=== PATIENT | male | born 1980 | race Caucasian/White ===

== ENCOUNTER 2019-04-17 17:54 | Inpatient (IN) | payer BC, OTHER ==
[~2019-04-17] VITALS: Ht 195.6 cm; Wt 163.4 kg
[2019-04-17] MEDS ORDERED: diltiazem 5mg/ml 5ml inj. IV ONE ×2 (18:20→18:50)
[2019-04-17] MEDS ORDERED: NO HOME MEDS (18:41)
[2019-04-17 18:50] LABS: BASOPHILS # (AUTO) 0.1 X10'3 (0-0.2); BASOPHILS % (AUTO) 1.1 % (0-1); EOSINOPHILS # (AUTO) 0.2 X10'3 (0-0.9); EOSINOPHILS % (AUTO) 1.1 % (0-6); HEMATOCRIT 39.3 % (42.0-52.0); LYMPHOCYTES # (AUTO) 1.6 X10'3 (1.1-4.8); LYMPHOCYTES % (AUTO) 11.2 % (21-51); MEAN CORPUSCULAR HGB CONC 33.1 g/dL (33.0-36.5); MEAN CORPUSCULAR VOLUME 90.5 FL (78-98); MEAN PLATELET VOLUME 9.8 FL (7.4-10.4); MONOCYTES % (AUTO) 6.9 % (2-12); NEUTROPHILS # (AUTO) 11.1 X10'3 (1.8-7.7); NEUTROPHILS % (AUTO) 79.7 % (42-75); PLATELET COUNT 233 X10'3 (140-440); RED BLOOD COUNT 4.35 X10'6 (4.70-6.10); RED CELL DISTRIBUTION WIDTH 14.7 % (11.5-14.5); WHITE BLOOD COUNT 13.9 X10'3 (4.5-11.0)
[2019-04-17 19:05] LABS: ALANINE AMINOTRANSFERASE 108 U/L (12-78); ALBUMIN 3.9 G/DL (3.4-5.0); ALBUMIN/GLOBULIN RATIO 1.1 (1.1-1.5); ALKALINE PHOSPHATASE 88 IU/L (46-116); ANION GAP 10 (8-16); ASPARTATE AMINO TRANSFERASE 41 U/L (10-37); BLOOD UREA NITROGEN 19 MG/DL (7-18); CALCIUM 9.2 MG/DL (8.5-10.1); CHLORIDE 105 MMOL/L (99-107); CREATININE 1.19 MG/DL (0.60-1.10); GLUCOSE 255 MG/DL (70-104); POTASSIUM 3.5 MMOL/L (3.5-5.1); SODIUM 143 MMOL/L (135-145); TOTAL CARBON DIOXIDE 27.9 MMOL/L (24-32); TOTAL PROTEIN 7.3 G/DL (6.4-8.2); eGFR 68 ML/MIN
[2019-04-17 19:13] LABS: MAGNESIUM 1.8 MG/DL (1.5-2.4)
--- NOTE | 2019-04-17 19:23 | NUR ---
registration is with him, he is using his arms, heart rate increases in the 120s with activity.
--- NOTE | 2019-04-17 19:23 | NUR ---
Spoke to PA in regards to troponin, BNP and glucose and kidney function. Discussed pharmaceutical options.
[2019-04-17] MEDS ORDERED: aspirin 81mg tab.chew PO ONE (19:25)
[2019-04-17] MEDS ORDERED: furosemide 10 MG/1 ML 10ml inj IV ONE (19:40)
--- NOTE | 2019-04-17 20:26 | NUR ---
PT UP TO VOID
[2019-04-17] MEDS ORDERED: diltiazem-D5W 125mg/125ml 125 ML IV SCH (20:30)
[2019-04-17] MEDS ORDERED: diltiazem-NS 100mg/100ml 100 ML IV SCH (20:30)
[2019-04-17] MEDS ORDERED: amiodarone 150mg/dext, iso-os 100 ML IV ONE (20:50)
[2019-04-17] MEDS: amiodarone/D5 360MG/200ML BAG 200 ML IV SCH (21:21)
[2019-04-17] MEDS ORDERED: potassium Cl 20 mEq SR tablet PO PRN (21:50)
[2019-04-17] MEDS ORDERED: acetaminophen 325mg tablet PO PRN (21:50)
[2019-04-17] MEDS ORDERED: magnesium 2GM in 50ml NS 50 ML IV PRN (21:50)
[2019-04-17] MEDS ORDERED: magnesium Cl slow-release 64mg tablet PO PRN (21:50)
[2019-04-17] MEDS ORDERED: potassium CL 10mEq/100ml bag 100 ML IV PRN ×2 (21:50)
[2019-04-17] MEDS ORDERED: magnesium 4gm in 100ml NS 100 ML IV PRN (21:50)
[2019-04-17] MEDS ORDERED: ondansetron/PF 4mg/2ml inj IV PRN (21:50)
--- NOTE | 2019-04-17 21:52 | NUR ---
PATRICIA informed of the patients' blood pressure. Pulled up the trend review for her. She will re evaluate at a later time.
[2019-04-17] MEDS ORDERED: metoprolol tartrate 1mg/ml inj IV STA (21:57)
--- NOTE | 2019-04-17 21:58 | NUR ---
Dr. Ledezma notified of bp and order obtained.
[2019-04-17] MEDS ORDERED: nitroGLYCERIN-Tridil 50MG/D5W 250 ML IV SCH (22:00)
--- NOTE | 2019-04-17 22:11 | NUR ---
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
[2019-04-17 22:40] VITALS: BP 167/135
--- NOTE | 2019-04-17 22:47 | NUR ---
Patient in room ED 5. I have received report from MICKI Kaye and had the opportunity to ask questions and assume patient care.
[2019-04-17 23:00] VITALS: BP 211/136
[2019-04-17 23:10] VITALS: BP 152/126
--- NOTE | 2019-04-17 23:25 | NUR ---
Sent to [facility] PAGER ID: [phone] MESSAGE: room 3019M Dilan Zheng: Patient BS 253 accucheck. Not dx w/DM Parent's have DM Would you like to get A1C and order diabetic protocol? Thanks, Nicole [phone]
[2019-04-17] MEDS ORDERED: dextrose ORAL solution 15 GM/59 ML bottle PO PRN ×2 (23:30)
[2019-04-17] MEDS ORDERED: glucagon, human recombinant 1mg kit SUBCUT PRN (23:30)
[2019-04-17] MEDS ORDERED: MESSAGE TO PHARMACY PO ONE (23:30)
[2019-04-17] MEDS ORDERED: dextrose 50%-water 50ml dispensing syringe IV PRN ×2 (23:30)
--- NOTE | 2019-04-17 23:49 | NUR ---
Patient arrived on unit at approx 2300 was placed on bedside monitor, started on nitro drop per md order, amidodorone running per md order, vital sign obtained and recorded, MRSA complete, 2 RN skin check complete, DART complete. Patient vital signs are being monitored closely.
[2019-04-17 23:50] LABS: HEMOGLOBIN A1C 9.2 % (4.5-6.2)
[2019-04-18] VITALS (18 sets, daily range): BP systolic 118–230; BP diastolic 88–180
[2019-04-18] MEDS: nitroGLYCERIN-Tridil 50MG/D5W 250 ML IV SCH ×3 (02:28→04:34)
--- NOTE | 2019-04-18 02:30 | NUR ---
Called Darien to report patient HR 130's and BP 230/160 manual. Her orders were to increase the nitro drop to 10 mcg/min and to keep the amiodorone drip at its current dose of 1 mg/min
[2019-04-18] MEDS: amiodarone/D5 360MG/200ML BAG 200 ML IV SCH ×2 (03:07→10:11)
--- NOTE | 2019-04-18 03:13 | NUR ---
Sent to [facility] PAGER ID: [phone] MESSAGE: room 2017B Dilan Zheng: BP is still 210/180 manual. on 10 mcg of nitro for 44 min now. Would you like to increase? Nicole [phone]
[2019-04-18] MEDS ORDERED: cloNIDine 0.1 mg tablet PO ONE (03:20)
[2019-04-18] MEDS: insulin Lispro (HumaLOG) vial - multi-dose SQ SCH ×5 (03:25→21:02)
--- NOTE | 2019-04-18 04:21 | NUR ---
SENT TO [facility] ROOM 2017B Norm Kong: Manual BP 206 systolic Please advise Thanks, Nicole [phone] (135 character message out of a maximum of 240)
--- NOTE | 2019-04-18 06:15 | NUR ---
Problems reprioritized. Patient report given, questions answered & plan of care reviewed with Ingrid RN, MICKI Villalpando.
[2019-04-18 06:47] LABS: BASOPHILS # (AUTO) 0.1 X10'3 (0-0.2); BASOPHILS % (AUTO) 0.9 % (0-1); EOSINOPHILS # (AUTO) 0.1 X10'3 (0-0.9); EOSINOPHILS % (AUTO) 1.2 % (0-6); HEMATOCRIT 34.7 % (42.0-52.0); HEMOGLOBIN 11.8 g/dl (14.0-17.9); LYMPHOCYTES # (AUTO) 1.6 X10'3 (1.1-4.8); LYMPHOCYTES % (AUTO) 13.3 % (21-51); MEAN CORPUSCULAR HEMOGLOBIN 30.2 PG (27.0-31.0); MEAN CORPUSCULAR VOLUME 88.8 FL (78-98); MEAN PLATELET VOLUME 9.6 FL (7.4-10.4); MONOCYTES % (AUTO) 7.9 % (2-12); NEUTROPHILS # (AUTO) 9.5 X10'3 (1.8-7.7); NEUTROPHILS % (AUTO) 76.7 % (42-75); PLATELET COUNT 228 X10'3 (140-440); RED CELL DISTRIBUTION WIDTH 14.8 % (11.5-14.5); WHITE BLOOD COUNT 12.4 X10'3 (4.5-11.0)
[2019-04-18 06:55] LABS: ALANINE AMINOTRANSFERASE 87 U/L (12-78); ALBUMIN 3.5 G/DL (3.4-5.0); ALBUMIN/GLOBULIN RATIO 1.2 (1.1-1.5); ALKALINE PHOSPHATASE 73 IU/L (46-116); ANION GAP 8 (8-16); ASPARTATE AMINO TRANSFERASE 24 U/L (10-37); BILIRUBIN,TOTAL 0.7 MG/DL (0.1-1.0); BLOOD UREA NITROGEN 18 MG/DL (7-18); BUN/CREATININE RATIO 15.8 (5.4-32.0); CALCIUM 8.3 MG/DL (8.5-10.1); CHLORIDE 104 MMOL/L (99-107); CREATININE 1.14 MG/DL (0.60-1.10); GLUCOSE 269 MG/DL (70-104); POTASSIUM 3.4 MMOL/L (3.5-5.1); SODIUM 141 MMOL/L (135-145); TOTAL CARBON DIOXIDE 29.3 MMOL/L (24-32); TOTAL PROTEIN 6.4 G/DL (6.4-8.2); eGFR 72 ML/MIN
[2019-04-18 07:02] LABS: BILIRUBIN,DIRECT 0.2 MG/DL (0-0.3); MAGNESIUM 1.9 MG/DL (1.5-2.4)
--- NOTE | 2019-04-18 07:26 | NUR ---
Patient in room [place] [address]. I have received report from and had the opportunity to ask questions and assume patient care. Addendum: 04/18/19 at 0726 by Irasema Ontiveros RN Patient in room [place] [address]. I have received report from MICKI Rivera and had the opportunity to ask questions and assume patient care.
--- NOTE | 2019-04-18 07:26 | NUR ---
Kandice Lemus PAGER ID: [phone] MESSAGE: Sumit - Norm Kong: BANG: Pt trop level is 0.18
[2019-04-18] MEDS: heparin, porcine 5000 units/ml vial SQ SCH ×2 (07:45→19:15)
[2019-04-18] MEDS: furosemide 40mg/4ml inj IV SCH ×2 (07:45→19:16)
[2019-04-18] MEDS: K and/or MAG REPLACEMENT MC SCH ×2 (07:46→19:35)
[2019-04-18] MEDS: carVEDilol 3.125mg tablet PO SCH ×2 (07:46→21:02)
[2019-04-18] MEDS: potassium Cl 20 mEq SR tablet PO PRN ×3 (07:46→19:19)
--- NOTE | 2019-04-18 07:51 | NUR ---
Paged Stella regarding pt high BP PAGER ID: [phone] MESSAGE: [id number]- Norm Kong: BANG pts BP 160/120, currently on nitro gtt @ 20mcg/min and amio @33mL/hr. Irasema [phone]
[2019-04-18] MEDS ORDERED: FLU VACC QS2019-20 36MOS UP/PF 60 MCG/0.5 ML SYRINGE IMVAC ONE (10:00)
--- NOTE | 2019-04-18 11:05 | NUR ---
Paged Cristina PAGER ID: [phone] MESSAGE: [id number] - Iveth Peters: BANG - Manual BP was 190/75, HR 72. In no distress at this time. Kindly advise. - Irasema [phone]
[2019-04-18] MEDS ORDERED: diltiazem 5mg/ml 5ml inj. IV ONE (14:05)
[2019-04-18] MEDS ORDERED: diltiazem-NS 100mg/100ml 125 ML IV SCH (14:05)
--- NOTE | 2019-04-18 14:16 | NUR ---
Initial: Pt admit with CP and probable CHF. Patient's current A1c is 9.2 however no documented hx of DM. Pt seen at bedside reports no knowledge of having DM. RD paged MD regarding patient needing DM dx prior to RD providing education. Pt on a CHO controlled diet with no documentation of PO intake however pt reports eating almost all of breakfast this morning. Pt denies any food allergies however requests not to receive coffee, d/w dietary. Pt denies difficulty chewing/swallowing or constipation/diarrhea. [facility] 04/17. Will continue to follow. Recommendations: 1) Continue CHO controlled diet 2) DM education prior to discharge once pt given DM dx 3) Bowel care PRN 4) Wt per rx Addendum: 04/18/19 at [address] Amended: Links added.
--- NOTE | 2019-04-18 14:18 | NUR ---
Paged PICC nurse Rm [phone] Dilan. Pt needs PIV for cardiac gtt, could you please come place one. Pt is hard stick.
[2019-04-18] MEDS: diltiazem-NS 100mg/100ml 100 ML IV SCH (16:05)
--- NOTE | 2019-04-18 17:57 | NUR ---
[place] documentation: I have reviewed and agree with interventions, assessments performed and documented by Irasema SWEET. [place] Medication Administration: For this medication-pass time frame, medication were reviewed, dispensed, administered and documented per hospital policy by Irasema SWEET.
--- NOTE | 2019-04-18 18:08 | NUR ---
Problems reprioritized. Patient report given, questions answered & plan of care reviewed with Nila Farrell.
--- NOTE | 2019-04-18 18:14 | NUR ---
Patient in room PCU 3017. I have received report from MICKI Quintero and MICIK Villalpando and had the opportunity to ask questions and assume patient care. Patient sitting up at bedside for report. On room air, 20 mcg/kg/min Nitroglycerin and 5 mcgs/kg/min Diltiazem infusing per provider order. Stable at this time. Will continue to monitor closely.
[2019-04-18 19:46] LABS: URINE AMPHETAMINE SCREEN NEGATIVE (Neg); URINE BARBITUATE SCREEN NEGATIVE (Neg); URINE BENZODIAZEPINES SCREEN NEGATIVE (Neg); URINE CANNABINOID SCREEN NEGATIVE (Neg); URINE COCAINE SCREEN NEGATIVE (Neg); URINE METHADONE SCREEN NEGATIVE (Neg); URINE OPIATE SCREEN NEGATIVE (Neg); URINE PHENCYCLIDINE SCREEN NEGATIVE (Neg)
[2019-04-18] MEDS: insulin glargine (Lantus) pen - multi-dose SQ SCH (21:00)
[2019-04-18] MEDS: lisinopril 20mg tablet PO SCH (21:03)
[2019-04-19] VITALS (12 sets, daily range): BP systolic 120–169; BP diastolic 88–132
[2019-04-19 05:20] LABS: BASOPHILS # (AUTO) 0.1 X10'3 (0-0.2); BASOPHILS % (AUTO) 0.6 % (0-1); EOSINOPHILS # (AUTO) 0.2 X10'3 (0-0.9); EOSINOPHILS % (AUTO) 1.6 % (0-6); HEMATOCRIT 35.7 % (42.0-52.0); HEMOGLOBIN 12.3 g/dl (14.0-17.9); LYMPHOCYTES # (AUTO) 2.2 X10'3 (1.1-4.8); LYMPHOCYTES % (AUTO) 16.5 % (21-51); MEAN CORPUSCULAR HEMOGLOBIN 30.2 PG (27.0-31.0); MEAN CORPUSCULAR HGB CONC 34.3 g/dL (33.0-36.5); MEAN CORPUSCULAR VOLUME 88.2 FL (78-98); MEAN PLATELET VOLUME 9.6 FL (7.4-10.4); MONOCYTES % (AUTO) 7.9 % (2-12); NEUTROPHILS # (AUTO) 9.6 X10'3 (1.8-7.7); NEUTROPHILS % (AUTO) 73.4 % (42-75); PLATELET COUNT 236 X10'3 (140-440); RED BLOOD COUNT 4.06 X10'6 (4.70-6.10); RED CELL DISTRIBUTION WIDTH 14.3 % (11.5-14.5); WHITE BLOOD COUNT 13.1 X10'3 (4.5-11.0)
[2019-04-19 05:24] LABS: ALBUMIN 3.6 G/DL (3.4-5.0); ANION GAP 9 (8-16); BLOOD UREA NITROGEN 21 MG/DL (7-18); BUN/CREATININE RATIO 18.4 (5.4-32.0); CALCIUM 8.5 MG/DL (8.5-10.1); CHLORIDE 103 MMOL/L (99-107); CREATININE 1.14 MG/DL (0.60-1.10); GLUCOSE 179 MG/DL (70-104); MAGNESIUM 1.9 MG/DL (1.5-2.4); POTASSIUM 3.3 MMOL/L (3.5-5.1); SODIUM 140 MMOL/L (135-145); TOTAL CARBON DIOXIDE 28.1 MMOL/L (24-32); eGFR 72 ML/MIN
--- NOTE | 2019-04-19 05:38 | NUR ---
Per claudia Castro DC gtt.
[2019-04-19] MEDS: potassium Cl 20 mEq SR tablet PO PRN ×3 (05:54→19:42)
[2019-04-19] MEDS: diltiazem-NS 100mg/100ml 100 ML IV SCH ×2 (05:55→18:06)
--- NOTE | 2019-04-19 06:13 | NUR ---
Problems reprioritized. Patient report given, questions answered & plan of care reviewed with MICKI MENESES.
--- NOTE | 2019-04-19 06:45 | NUR ---
Patient in room PCU 3017. I have received report from Jami SWEET and had the opportunity to ask questions and assume patient care.
[2019-04-19] MEDS: lisinopril 20mg tablet PO SCH (07:18)
[2019-04-19] MEDS: carVEDilol 3.125mg tablet PO SCH (07:19)
[2019-04-19] MEDS: heparin, porcine 5000 units/ml vial SQ SCH (07:19)
[2019-04-19] MEDS: furosemide 40mg/4ml inj IV SCH ×4 (07:19→19:43)
[2019-04-19] MEDS: K and/or MAG REPLACEMENT MC SCH ×2 (07:24→19:44)
[2019-04-19] MEDS: insulin Lispro (HumaLOG) vial - multi-dose SQ SCH ×3 (08:14→19:53)
[2019-04-19] MEDS ORDERED: FLU VACC QS2019-20 36MOS UP/PF 60 MCG/0.5 ML SYRINGE IMVAC ONE (10:00)
[2019-04-19 12:33] LABS: CHOL/HDL RATIO 3.8 (0.00-4.99); CHOLESTEROL 134 MG/DL (0-200); HDL CHOLESTEROL 35 MG/DL (35-60); LDL CHOLESTEROL 87 MG/DL (50-100); TRIGLYCERIDES 139 MG/DL (20-135)
--- NOTE | 2019-04-19 16:42 | NUR ---
Problems reprioritized. Patient report given, questions answered & plan of care reviewed with Martina SWEET.
--- NOTE | 2019-04-19 17:35 | NUR ---
Patient in room MED 309. I have received report from Martina SWEET and had the opportunity to ask questions and assume patient care. bedside report completed.
--- NOTE | 2019-04-19 17:51 | NUR ---
Dr Lashae mcarthur to clarify order. paged. [phone] MESSAGE: 309--sandy can, Norm. admit for A- fib RVR. Jf solano ordered for 10 ml/hr. He arrived to ACCE on 5ml/hr HR 110-120, currently a-fib. BP 128/96. ext [phone], giles. what order would you like the Cardizem to be. 5ml/hr or 10ml/hr?
--- NOTE | 2019-04-19 18:01 | NUR ---
Dr. Gonzales at bedside Diltizem drip decreased to 5ml/hr. orders changed and noted.
[2019-04-19] MEDS: apixaban 5mg tablet PO SCH (19:43)
[2019-04-19] MEDS ORDERED: carVEDilol 3.125mg tablet PO SCH (20:00)
[2019-04-19] MEDS: insulin glargine (Lantus) pen - multi-dose SQ SCH (22:34)
[2019-04-20] VITALS (13 sets, daily range): BP systolic 101–147; BP diastolic 64–112
[2019-04-20 02:22] LABS: BASOPHILS # (AUTO) 0.1 X10'3 (0-0.2); BASOPHILS % (AUTO) 0.5 % (0-1); EOSINOPHILS # (AUTO) 0.2 X10'3 (0-0.9); EOSINOPHILS % (AUTO) 1.3 % (0-6); HEMATOCRIT 38.9 % (42.0-52.0); LYMPHOCYTES # (AUTO) 2.1 X10'3 (1.1-4.8); LYMPHOCYTES % (AUTO) 13.5 % (21-51); MEAN CORPUSCULAR HEMOGLOBIN 29.8 PG (27.0-31.0); MEAN CORPUSCULAR HGB CONC 33.4 g/dL (33.0-36.5); MEAN CORPUSCULAR VOLUME 89.1 FL (78-98); MEAN PLATELET VOLUME 9.4 FL (7.4-10.4); MONOCYTES # (AUTO) 1.4 X10'3 (0-0.9); MONOCYTES % (AUTO) 8.7 % (2-12); PLATELET COUNT 270 X10'3 (140-440); RED BLOOD COUNT 4.36 X10'6 (4.70-6.10); RED CELL DISTRIBUTION WIDTH 14.6 % (11.5-14.5); WHITE BLOOD COUNT 15.8 X10'3 (4.5-11.0)
[2019-04-20 02:33] LABS: ALBUMIN 3.6 G/DL (3.4-5.0); ANION GAP 7 (8-16); BLOOD UREA NITROGEN 21 MG/DL (7-18); BUN/CREATININE RATIO 16.8 (5.4-32.0); CALCIUM 8.7 MG/DL (8.5-10.1); CHLORIDE 103 MMOL/L (99-107); CREATININE 1.25 MG/DL (0.60-1.10); GLUCOSE 147 MG/DL (70-104); MAGNESIUM 1.9 MG/DL (1.5-2.4); POTASSIUM 3.6 MMOL/L (3.5-5.1); SODIUM 139 MMOL/L (135-145); eGFR 64 ML/MIN
[2019-04-20 02:36] LABS: PARTIAL THROMBOPLASTIN TIME 25 SECONDS (22-32)
[2019-04-20] MEDS: diltiazem-NS 100mg/100ml 100 ML IV SCH (04:09)
--- NOTE | 2019-04-20 06:18 | NUR ---
Problems reprioritized. Patient report given, questions answered & plan of care reviewed with Darlyn SWEET. bedside report completed. no distress noted.
--- NOTE | 2019-04-20 06:26 | NUR ---
Patient in room MED 309. I have received report from MICKI Ball and had the opportunity to ask questions and assume patient care.
[2019-04-20] MEDS: K and/or MAG REPLACEMENT MC SCH ×2 (08:00→20:00)
[2019-04-20] MEDS: apixaban 5mg tablet PO SCH ×2 (09:03→20:52)
[2019-04-20] MEDS: carVEDilol 12.5mg tablet PO SCH ×2 (09:06→20:52)
[2019-04-20] MEDS: CefTRIAXone/D5W-Rocephin 1gm 50 ML IV SCH (09:06)
[2019-04-20] MEDS: lisinopril 20mg tablet PO SCH (09:07)
[2019-04-20] MEDS: furosemide 40mg/4ml inj IV SCH ×3 (09:07→20:52)
[2019-04-20] MEDS: insulin Lispro (HumaLOG) vial - multi-dose SQ SCH ×2 (09:25→18:57)
[2019-04-20] MEDS ORDERED: FLU VACC QS2019-20 36MOS UP/PF 60 MCG/0.5 ML SYRINGE IMVAC ONE (10:00)
--- NOTE | 2019-04-20 10:06 | NUR ---
PICC NURSE PAGED: 309: sandy - difficult lab draws, can you place extended? ty
--- NOTE | 2019-04-20 11:00 | NUR ---
Extended PIV placed in Left Basilic Vein with Arrow Extended Catheter Lot#[id number] Exp 08/29/2020 Addendum: 04/20/19 at 1103 by Marquita Poole RN Amended: Links added.
--- NOTE | 2019-04-20 12:00 | NUR ---
pt. blood glucose is 148. pt. is NPO until ultrasound this afternoon. will not cover with insulin at this time. will check blood glucose before dinner and begin coverage again at that time.
[2019-04-20 12:43] LABS: CLARITY,URINE CLEAR (Clear); COLOR,URINE YELLOW (Yellow); GLUCOSE, URINE NEGATIVE (Neg); KETONES,URINE NEGATIVE (Neg); LEUKOCYTE ESTERASE ,URINE NEGATIVE (Neg); NITRITES, URINE NEGATIVE (Neg); OCCULT BLOOD,URINE NEGATIVE (Neg); PROTEIN,URINE NEGATIVE (Neg); UROBILINOGEN,URINE 0.2 E.U/dL (0.2-1.0)
[2019-04-20 12:45] LABS: UA COLLECTION TYPE NON-SPECIFIED
--- NOTE | 2019-04-20 18:26 | NUR ---
Patient in room MED 309. I have received report from PATRICK SWEET and had the opportunity to ask questions and assume patient care.
--- NOTE | 2019-04-20 18:47 | NUR ---
Problems reprioritized. Patient report given, questions answered & plan of care reviewed with MICKI Bruce.
[2019-04-20] MEDS: insulin glargine (Lantus) pen - multi-dose SQ SCH (22:01)
[2019-04-21] VITALS (14 sets, daily range): BP systolic 101–147; BP diastolic 54–104
--- NOTE | 2019-04-21 02:30 | NUR ---
CONDOM CATH USED FOR INCONTINENCE
--- NOTE | 2019-04-21 06:00 | NUR ---
Problems reprioritized. Patient report given, questions answered & plan of care reviewed with CASANDRA SWEET.
[2019-04-21 07:07] LABS: BASOPHILS # (AUTO) 0.1 X10'3 (0-0.2); BASOPHILS % (AUTO) 0.9 % (0-1); EOSINOPHILS # (AUTO) 0.2 X10'3 (0-0.9); EOSINOPHILS % (AUTO) 1.2 % (0-6); HEMATOCRIT 37.3 % (42.0-52.0); HEMOGLOBIN 12.5 g/dl (14.0-17.9); LYMPHOCYTES # (AUTO) 1.9 X10'3 (1.1-4.8); LYMPHOCYTES % (AUTO) 12.5 % (21-51); MEAN CORPUSCULAR HEMOGLOBIN 30.1 PG (27.0-31.0); MEAN CORPUSCULAR HGB CONC 33.5 g/dL (33.0-36.5); MEAN CORPUSCULAR VOLUME 89.8 FL (78-98); MEAN PLATELET VOLUME 9.5 FL (7.4-10.4); MONOCYTES # (AUTO) 1.6 X10'3 (0-0.9); MONOCYTES % (AUTO) 10.5 % (2-12); NEUTROPHILS # (AUTO) 11.5 X10'3 (1.8-7.7); NEUTROPHILS % (AUTO) 74.9 % (42-75); PLATELET COUNT 229 X10'3 (140-440); RED BLOOD COUNT 4.16 X10'6 (4.70-6.10); RED CELL DISTRIBUTION WIDTH 14.5 % (11.5-14.5); WHITE BLOOD COUNT 15.4 X10'3 (4.5-11.0)
[2019-04-21 07:19] LABS: ALBUMIN 3.5 G/DL (3.4-5.0); ANION GAP 6 (8-16); BLOOD UREA NITROGEN 17 MG/DL (7-18); BUN/CREATININE RATIO 14.4 (5.4-32.0); CALCIUM 8.6 MG/DL (8.5-10.1); CHLORIDE 102 MMOL/L (99-107); CREATININE 1.18 MG/DL (0.60-1.10); GLUCOSE 122 MG/DL (70-104); MAGNESIUM 2.1 MG/DL (1.5-2.4); POTASSIUM 3.5 MMOL/L (3.5-5.1); SODIUM 140 MMOL/L (135-145); TOTAL CARBON DIOXIDE 31.8 MMOL/L (24-32); eGFR 69 ML/MIN
[2019-04-21 07:22] LABS: PARTIAL THROMBOPLASTIN TIME 26 SECONDS (22-32)
[2019-04-21] MEDS ORDERED: potassium CL 10mEq/100ml bag 100 ML IV PRN (07:30)
[2019-04-21] MEDS ORDERED: magnesium Cl slow-release 64mg tablet PO PRN (07:30)
[2019-04-21] MEDS ORDERED: magnesium 2GM in 50ml NS 50 ML IV PRN (07:30)
[2019-04-21] MEDS ORDERED: magnesium 4gm in 100ml NS 100 ML IV PRN (07:30)
[2019-04-21] MEDS ORDERED: K and/or MAG REPLACEMENT MC SCH (07:30)
--- NOTE | 2019-04-21 07:33 | NUR ---
Patient in room MED 309. I have received report from MICKI Bruce and had the opportunity to ask questions and assume patient care.
[2019-04-21] MEDS: K and/or MAG REPLACEMENT MC SCH ×2 (08:00→20:00)
[2019-04-21] MEDS: apixaban 5mg tablet PO SCH ×2 (08:31→20:33)
[2019-04-21] MEDS: carVEDilol 12.5mg tablet PO SCH ×2 (08:31→20:39)
[2019-04-21] MEDS: furosemide 40mg/4ml inj IV SCH ×2 (08:31→13:42)
[2019-04-21] MEDS: lisinopril 20mg tablet PO SCH (08:32)
[2019-04-21] MEDS: CefTRIAXone/D5W-Rocephin 1gm 50 ML IV SCH (08:33)
[2019-04-21] MEDS: insulin Lispro (HumaLOG) vial - multi-dose SQ SCH ×3 (08:44→18:50)
[2019-04-21] MEDS ORDERED: carVEDilol 12.5mg tablet PO ONE (08:55)
[2019-04-21] MEDS: diltiazem-NS 100mg/100ml 100 ML IV SCH (12:41)
--- NOTE | 2019-04-21 12:54 | NUR ---
PAGER ID: [phone] MESSAGE: rm 309. pt. Norm Kong. pt. keeps flipping in and out of AFIB. Cardizem drip was dropped to 2.5 yesterday and pt. heart rate is still in 90-120s. please advise. MICKI Santizo [phone]
--- NOTE | 2019-04-21 15:34 | NUR ---
ryan paged: PAGER ID: [phone] MESSAGE: 309: MARIAM - still afib, hr 100-120s, Cardizem gtt @ 2.5. ?new orders ?cardiovert ty nurse Marlena [phone]
[2019-04-21] MEDS: furosemide inj 100 ML IV SCH (16:54)
--- NOTE | 2019-04-21 18:34 | NUR ---
Problems reprioritized. Patient report given, questions answered & plan of care reviewed with MICKI Bruce.
--- NOTE | 2019-04-21 18:41 | NUR ---
Patient in room MED 309. I have received report from bi SWEET and had the opportunity to ask questions and assume patient care.
[2019-04-21] MEDS: insulin glargine (Lantus) pen - multi-dose SQ SCH (22:00)
[2019-04-21 23:52] LABS: ALBUMIN 3.2 G/DL (3.4-5.0); ANION GAP 7 (8-16); BLOOD UREA NITROGEN 19 MG/DL (7-18); BUN/CREATININE RATIO 15.1 (5.4-32.0); CALCIUM 7.7 MG/DL (8.5-10.1); CHLORIDE 105 MMOL/L (99-107); CREATININE 1.26 MG/DL (0.60-1.10); GLUCOSE 95 MG/DL (70-104); PHOSPHORUS 4.2 MG/DL (2.3-4.5); SODIUM 142 MMOL/L (135-145); TOTAL CARBON DIOXIDE 30.2 MMOL/L (24-32); eGFR 64 ML/MIN
[2019-04-21 23:55] LABS: POTASSIUM 2.9 MMOL/L (3.5-5.1)
[2019-04-22] VITALS (12 sets, daily range): BP systolic 83–133; BP diastolic 56–80
--- NOTE | 2019-04-22 00:03 | NUR ---
CRITICAL POTASSIUM 2.9, NOTIFIED, YI START REPLACEMENT PROTOCOL
[2019-04-22] MEDS: K and/or MAG REPLACEMENT MC SCH ×2 (00:04→20:00)
[2019-04-22] MEDS: potassium Cl 20 mEq SR tablet PO PRN ×3 (00:20→11:06)
[2019-04-22] MEDS: furosemide inj 100 ML IV SCH (00:21)
--- NOTE | 2019-04-22 01:00 | NUR ---
INFUSION RATE CHANGED ON PUMP, MD GOMEZ NOTIFIED FOR CORRECTIVE INFUSION RATE OF LASIX. PATIENT STARTED ON REPLACENT PROTOCOL FOR POTASSIUM, POTASSIUM AT 2.9 ORAL POTASSIUM GIVEN TO PATIENT.
--- NOTE | 2019-04-22 06:00 | NUR ---
Problems reprioritized. Patient report given, questions answered & plan of care reviewed with BRENDA SWEET.
[2019-04-22 06:23] LABS: ALBUMIN 3.7 G/DL (3.4-5.0); ANION GAP 9 (8-16); BLOOD UREA NITROGEN 18 MG/DL (7-18); BUN/CREATININE RATIO 14.5 (5.4-32.0); CALCIUM 8.5 MG/DL (8.5-10.1); CHLORIDE 101 MMOL/L (99-107); CREATININE 1.24 MG/DL (0.60-1.10); GLUCOSE 110 MG/DL (70-104); MAGNESIUM 2.3 MG/DL (1.5-2.4); PHOSPHORUS 4.5 MG/DL (2.3-4.5); SODIUM 140 MMOL/L (135-145); TOTAL CARBON DIOXIDE 30.4 MMOL/L (24-32); eGFR 65 ML/MIN
[2019-04-22 06:24] LABS: BASOPHILS # (AUTO) 0.1 X10'3 (0-0.2); BASOPHILS % (AUTO) 0.5 % (0-1); EOSINOPHILS # (AUTO) 0.1 X10'3 (0-0.9); HEMATOCRIT 37.9 % (42.0-52.0); HEMOGLOBIN 12.9 g/dl (14.0-17.9); LYMPHOCYTES # (AUTO) 1.8 X10'3 (1.1-4.8); LYMPHOCYTES % (AUTO) 13.2 % (21-51); MEAN CORPUSCULAR HGB CONC 34.1 g/dL (33.0-36.5); MEAN PLATELET VOLUME 10.2 FL (7.4-10.4); MONOCYTES # (AUTO) 1.2 X10'3 (0-0.9); MONOCYTES % (AUTO) 8.9 % (2-12); NEUTROPHILS # (AUTO) 10.6 X10'3 (1.8-7.7); NEUTROPHILS % (AUTO) 76.4 % (42-75); PLATELET COUNT 231 X10'3 (140-440); POTASSIUM 2.9 MMOL/L (3.5-5.1); RED BLOOD COUNT 4.31 X10'6 (4.70-6.10); RED CELL DISTRIBUTION WIDTH 14.4 % (11.5-14.5); WHITE BLOOD COUNT 13.9 X10'3 (4.5-11.0)
[2019-04-22] MEDS: apixaban 5mg tablet PO SCH ×2 (07:35→20:44)
[2019-04-22] MEDS: carVEDilol 12.5mg tablet PO SCH ×2 (07:36→16:02)
[2019-04-22] MEDS: CefTRIAXone/D5W-Rocephin 1gm 50 ML IV SCH (07:36)
[2019-04-22] MEDS: lisinopril 20mg tablet PO SCH (07:36)
[2019-04-22] MEDS: insulin Lispro (HumaLOG) vial - multi-dose SQ SCH ×3 (08:39→18:21)
--- NOTE | 2019-04-22 09:00 | NUR ---
IV LEFT FOREARM REDDENED DISCONTINUED, IV MEDS SWITCHED TO SHARON EXTENDED AND RIGHT FOREARM PIV- IV LASIX AND CARDIZEM ARE NOT COMPATIBLE
[2019-04-22 09:34] LABS: PARTIAL THROMBOPLASTIN TIME 30 SECONDS (22-32)
[2019-04-22 11:49] LABS: ALBUMIN 3.4 G/DL (3.4-5.0); ANION GAP 6 (8-16); BLOOD UREA NITROGEN 21 MG/DL (7-18); BUN/CREATININE RATIO 16.5 (5.4-32.0); CALCIUM 8.1 MG/DL (8.5-10.1); CHLORIDE 103 MMOL/L (99-107); CREATININE 1.27 MG/DL (0.60-1.10); GLUCOSE 150 MG/DL (70-104); MAGNESIUM 2.3 MG/DL (1.5-2.4); PHOSPHORUS 3.7 MG/DL (2.3-4.5); SODIUM 140 MMOL/L (135-145); TOTAL CARBON DIOXIDE 30.6 MMOL/L (24-32); eGFR 63 ML/MIN
--- NOTE | 2019-04-22 12:22 | NUR ---
Reassessment: Pt PO 75-100% avg carb controlled/2L fluid restricted meals meeting needs. Per RN; pt still not d/w MD regarding new DM DX. NIKKO d/w RN regarding MD notification for pt since unable to provide education until official DM DX. Pt only knows parents have DM currently. No DM survival skills have been provided or mention on DM in MD notes. Per CM note; pt is establishing a PCP at [place] [facility]. K 3.0 on lasix receiving routine PO K replacement. LBM 04/21. Will continue to monitor. Recommendations: 1) Continue CHO controlled/2L fluid restricted diet per MD 2) DM education prior to discharge once pt given DM dx 3) Bowel care PRN 4) Wt per rx Addendum: 04/22/19 at [address] Amended: Links added.
--- NOTE | 2019-04-22 12:25 | NUR ---
paged about K of 3.[address] Gomes- "Re: Norm Kong in 309, FYI patient most recent K is 3.0. so far I've given him 40meq of KDUR. would you like an additional 40meq? thanks, Martina TIRADO [phone]"
--- NOTE | 2019-04-22 14:58 | NUR ---
paged to ask about Cardikomal Drip Paged Dr. Gomes- "Re: Dilan in 309, do you want to continue the Cardizem drip? he is also on a Lasix drip. thank you, CANDIDA Mack [phone]"
--- NOTE | 2019-04-22 15:35 | NUR ---
DR. RAHMAN PRESENT AT BEDSIDE-ORDERS RN RECEIVED ORDERS TO DC CARDIZEM DRIP (DONE AT THIS TIME) REDUCE LASIX DRIP TO 5MG/HOUR (DONE AT THIS TIME) 40MEQ KDUR ONCE NOW ADMIN ONE TIME DOSE OF MISSED CARVEDILOL (25MG) ONCE NOW. Addendum: 04/22/19 at 1603 by Martina Castaneda RN IN ADDITION- ORDER TO DC LISINOPRIL
[2019-04-22] MEDS ORDERED: potassium Cl 20 mEq SR tablet PO STA (15:38)
[2019-04-22] MEDS ORDERED: carVEDilol 12.5mg tablet PO ONE (15:40)
[2019-04-22] MEDS ORDERED: furosemide inj 100 ML IV SCH (16:10)
--- NOTE | 2019-04-22 18:00 | NUR ---
Patient in room MED 309. I have received report from Martina SWEET and had the opportunity to ask questions and assume patient care.
[2019-04-22 21:23] LABS: ALBUMIN 3.6 G/DL (3.4-5.0); ANION GAP 4 (8-16); BLOOD UREA NITROGEN 25 MG/DL (7-18); BUN/CREATININE RATIO 15.3 (5.4-32.0); CALCIUM 8.6 MG/DL (8.5-10.1); CHLORIDE 102 MMOL/L (99-107); CREATININE 1.63 MG/DL (0.60-1.10); GLUCOSE 133 MG/DL (70-104); MAGNESIUM 2.5 MG/DL (1.5-2.4); PHOSPHORUS 3.8 MG/DL (2.3-4.5); POTASSIUM 3.6 MMOL/L (3.5-5.1); SODIUM 139 MMOL/L (135-145); TOTAL CARBON DIOXIDE 32.8 MMOL/L (24-32); eGFR 47 ML/MIN
[2019-04-22] MEDS: insulin glargine (Lantus) pen - multi-dose SQ SCH (21:56)
[2019-04-23] VITALS: BP 115/78
[2019-04-23 04:22] LABS: PARTIAL THROMBOPLASTIN TIME 27 SECONDS (22-32)
[2019-04-23 04:24] LABS: ALANINE AMINOTRANSFERASE 50 U/L (12-78); ALBUMIN 3.4 G/DL (3.4-5.0); ALBUMIN/GLOBULIN RATIO 0.9 (1.1-1.5); ALKALINE PHOSPHATASE 77 IU/L (46-116); ANION GAP 7 (8-16); ASPARTATE AMINO TRANSFERASE 22 U/L (10-37); BILIRUBIN,TOTAL 1.2 MG/DL (0.1-1.0); BLOOD UREA NITROGEN 23 MG/DL (7-18); BUN/CREATININE RATIO 18.1 (5.4-32.0); CALCIUM 8.2 MG/DL (8.5-10.1); CHLORIDE 103 MMOL/L (99-107); CREATININE 1.27 MG/DL (0.60-1.10); GLUCOSE 111 MG/DL (70-104); MAGNESIUM 2.2 MG/DL (1.5-2.4); POTASSIUM 3.3 MMOL/L (3.5-5.1); SODIUM 140 MMOL/L (135-145); TOTAL PROTEIN 7.1 G/DL (6.4-8.2); eGFR 63 ML/MIN
[2019-04-23 05:13] LABS: BASOPHILS # (AUTO) 0.1 X10'3 (0-0.2); BASOPHILS % (AUTO) 0.6 % (0-1); EOSINOPHILS # (AUTO) 0.3 X10'3 (0-0.9); EOSINOPHILS % (AUTO) 1.8 % (0-6); HEMATOCRIT 39.6 % (42.0-52.0); HEMOGLOBIN 13.3 g/dl (14.0-17.9); LYMPHOCYTES # (AUTO) 2.1 X10'3 (1.1-4.8); LYMPHOCYTES % (AUTO) 13.6 % (21-51); MEAN CORPUSCULAR HEMOGLOBIN 30.1 PG (27.0-31.0); MEAN CORPUSCULAR HGB CONC 33.5 g/dL (33.0-36.5); MEAN PLATELET VOLUME 10.5 FL (7.4-10.4); MONOCYTES # (AUTO) 1.7 X10'3 (0-0.9); MONOCYTES % (AUTO) 11.5 % (2-12); NEUTROPHILS % (AUTO) 72.5 % (42-75); PLATELET COUNT 259 X10'3 (140-440); RED CELL DISTRIBUTION WIDTH 14.3 % (11.5-14.5); WHITE BLOOD COUNT 15.1 X10'3 (4.5-11.0)
[2019-04-23] MEDS: potassium Cl 20 mEq SR tablet PO PRN ×2 (05:57→11:42)
[2019-04-23 06:00] VITALS: BP 157/68
[2019-04-23] MEDS: carVEDilol 12.5mg tablet PO SCH (07:13)
[2019-04-23] MEDS: apixaban 5mg tablet PO SCH (07:13)
[2019-04-23] MEDS: CefTRIAXone/D5W-Rocephin 1gm 50 ML IV SCH (07:16)
[2019-04-23] MEDS: K and/or MAG REPLACEMENT MC SCH (08:00)
[2019-04-23] MEDS: insulin Lispro (HumaLOG) vial - multi-dose SQ SCH (08:56)
[2019-04-23] MEDS ORDERED: FLU VACC QS2019-20 36MOS UP/PF 60 MCG/0.5 ML SYRINGE IMVAC ONE (10:00)
[2019-04-23 11:00] VITALS: BP 144/78
[2019-04-23] MEDS ORDERED: ASPI-611 PO (11:54)
[2019-04-23] MEDS ORDERED: LISI-604 PO (11:54)
[2019-04-23] MEDS ORDERED: APIX5TAB3 PO (11:54)
[2019-04-23] MEDS ORDERED: FURO40TA4 PO (11:54)
[2019-04-23] MEDS ORDERED: CARV25TA2 PO (11:54)
[2019-04-23] MEDS ORDERED: METF500T PO (11:54)
[2019-04-23] MEDS ORDERED: POTA20TA19 PO (11:55)
[2019-04-23] MEDS ORDERED: CEFD300C3 PO (12:02)
[2019-04-23] MEDS ORDERED: ATOR10TA87 PO (12:02)
--- NOTE | 2019-04-23 13:00 | NUR ---
Pt. given dischage instructions. All questions answered from the pt. and his family. PIVs removed without complication.
[2019-04-23 14:32] LABS: HBSAG SCREEN Negative (Negative); HEP A AB, IGM Negative (Negative); HEP B CORE AB, IGM Negative (Negative); HEPATITIS C ANTIBODY 0.2 s/co ratio (0.0-0.9)
== END 2019-04-23 13:00 | disposition home or self-care (01) | DRG 291 ==
LOC: ER 17:55 → ED HOLD 21:46 → CMPBEDREQ 23:12 → PCU 3S 23:13 → MED 3N 04-19 17:15
PROVIDERS: ADMIT Internal Medicine; ATTEND Family Medicine
DX: I13.0 Hypertensive heart and chronic kidney disease with heart failure and stage 1 through stage 4 chronic kidney disease, or unspecified chronic kidney disease (principal); I50.21 Acute systolic (congestive) heart failure; I24.8 Other forms of acute ischemic heart disease; L03.116 Cellulitis of left lower limb; N17.9 Acute kidney failure, unspecified; Z68.41 Body mass index [BMI] 40.0-44.9, adult; D64.9 Anemia, unspecified; I42.9 Cardiomyopathy, unspecified; E11.22 Type 2 diabetes mellitus with diabetic chronic kidney disease; E11.65 Type 2 diabetes mellitus with hyperglycemia; E66.9 Obesity, unspecified; E78.5 Hyperlipidemia, unspecified; E87.6 Hypokalemia; I48.91 Unspecified atrial fibrillation; J06.9 Acute upper respiratory infection, unspecified; K76.0 Fatty (change of) liver, not elsewhere classified; N18.9 Chronic kidney disease, unspecified; Z28.21 Immunization not carried out because of patient refusal; Z79.899 Other long term (current) drug therapy
CPT/HCPCS: 36415; 71045; 76700; 76937; 80048; 80053; 80061; 80069; 80074; 80076; 80305; 81003; 82948; 83036; 83735; 83880; 84100; 84443; 84484; 85025; 85610; 85730; 87081; 93005; 93306; 93970; 96374; 96375; 99291; G0378; J0282; J0696; J1644; J1815; J1940; J3490; Q2037

== ENCOUNTER 2019-07-04 07:22 | Day surgery (SDC) | payer BC ==
[2019-07-03 12:47] LABS: ANION GAP 10 (8-16); BLOOD UREA NITROGEN 15 MG/DL (7-18); CALCIUM 9.9 MG/DL (8.5-10.1); CHLORIDE 107 MMOL/L (99-107); GLUCOSE 178 MG/DL (70-104); POTASSIUM 3.9 MMOL/L (3.5-5.1); SODIUM 144 MMOL/L (135-145); TOTAL CARBON DIOXIDE 27.5 MMOL/L (24-32); eGFR 83 ML/MIN
[2019-07-03 12:55] LABS: BASOPHILS # (AUTO) 0.1 X10'3 (0-0.2); BASOPHILS % (AUTO) 0.5 % (0-1); EOSINOPHILS # (AUTO) 0.2 X10'3 (0-0.9); EOSINOPHILS % (AUTO) 1.4 % (0-6); HEMATOCRIT 41.2 % (42.0-52.0); HEMOGLOBIN 13.9 g/dl (14.0-17.9); LYMPHOCYTES # (AUTO) 1.6 X10'3 (1.1-4.8); LYMPHOCYTES % (AUTO) 13.4 % (21-51); MEAN CORPUSCULAR HEMOGLOBIN 29.6 PG (27.0-31.0); MEAN CORPUSCULAR HGB CONC 33.8 g/dL (33.0-36.5); MEAN CORPUSCULAR VOLUME 87.7 FL (78-98); MEAN PLATELET VOLUME 9.1 FL (7.4-10.4); MONOCYTES # (AUTO) 0.8 X10'3 (0-0.9); MONOCYTES % (AUTO) 6.6 % (2-12); NEUTROPHILS # (AUTO) 9.4 X10'3 (1.8-7.7); NEUTROPHILS % (AUTO) 78.1 % (42-75); PLATELET COUNT 219 X10'3 (140-440); RED BLOOD COUNT 4.69 X10'6 (4.70-6.10); RED CELL DISTRIBUTION WIDTH 15.4 % (11.5-14.5)
[2019-07-04] VITALS (10 sets, daily range): BP systolic 152–218; BP diastolic 97–159
[~2019-07-04] VITALS: Ht 193 cm; Wt 156.1 kg
[~2019-07-04 07:22] MED LIST: APIX5TAB3 PO; CARV25TA2 PO; LISI-604 PO
[2019-07-04] MEDS ORDERED: amiodarone in dextrose, iso-osm 150mg/100ml bag IV ONE (07:45)
[2019-07-04] MEDS ORDERED: ASPI-611 PO (07:45)
[2019-07-04] MEDS ORDERED: FURO40TA4 PO (07:45)
[2019-07-04] MEDS ORDERED: morphine 10mg/ml inj. IV ONE (07:45)
[2019-07-04] MEDS ORDERED: MIDAZolam 1mg/ml 10ml vial IV ONE (07:45)
[2019-07-04] MEDS ORDERED: normal saline 1000ml 1,000 ML IV SCH (07:45)
[2019-07-04] MEDS ORDERED: LORazepam 0.5 MG tablet PO ONE (07:45)
[2019-07-04] MEDS ORDERED: atropine 0.1mg/ml 10ml syringe IV ONE (07:45)
[2019-07-04] MEDS ORDERED: diphenhydrAMINE 25mg capsule PO ONE (07:45)
[2019-07-04] MEDS ORDERED: APIX5TAB3 PO (07:49)
[2019-07-04] MEDS ORDERED: CARV25TA2 PO (07:49)
[2019-07-04] MEDS ORDERED: LISI-604 PO (07:49)
[2019-07-04] MEDS ORDERED: carVEDilol 12.5mg tablet PO ONE (10:55)
[2019-07-04] MEDS ORDERED: hydrALAZINE 20mg/ml inj. IV ONE (10:55)
[2019-07-04] MEDS ORDERED: amiodarone 200mg tablet PO ONE (10:55)
== END 2019-07-04 11:50 | disposition home or self-care (01) ==
LOC: SSTAY O 07:22
PROVIDERS: ATTEND Internal Medicine Cardiovascular Disease
DX: I48.19 Other persistent atrial fibrillation (principal); Z79.01 Long term (current) use of anticoagulants
CPT/HCPCS: 36415; 80048; 85025; 85610; 92960; 93005; 94760; J0360; J2250; J2270; J7030; Q0163

== ENCOUNTER 2021-07-13 13:24 | Inpatient (IN) | payer BC ==
[~2021-07-13] VITALS: Ht 193 cm; Wt 172.7 kg
[~2021-07-13 13:24] MED LIST changes: +ASPI-611 PO; +FURO40TA4 PO; -LISI-604 PO; +LISI5TAB22 PO
--- NOTE | 2021-07-13 13:45 | NUR ---
informed [place] of pt htn 240/133 in triage and slurred speech. received verbal order for stroke alert protocol, urinalysis, ua tox screen, and ammonia lab. orders placed as received
[2021-07-13 14:21] LABS: BASOPHILS # (AUTO) 0.1 X10'3 (0-0.2); BASOPHILS % (AUTO) 0.6 % (0-1); EOSINOPHILS # (AUTO) 0.1 X10'3 (0-0.9); EOSINOPHILS % (AUTO) 1.4 % (0-6); HEMATOCRIT 39.8 % (42.0-52.0); HEMOGLOBIN 13.5 g/dl (14.0-17.9); LYMPHOCYTES # (AUTO) 1.4 X10'3 (1.1-4.8); LYMPHOCYTES % (AUTO) 13.6 % (21-51); MEAN CORPUSCULAR HEMOGLOBIN 30.5 PG (27.0-31.0); MEAN CORPUSCULAR HGB CONC 33.9 g/dL (33.0-36.5); MEAN CORPUSCULAR VOLUME 89.8 FL (78-98); MEAN PLATELET VOLUME 9.4 FL (7.4-10.4); MONOCYTES # (AUTO) 0.7 X10'3 (0-0.9); MONOCYTES % (AUTO) 7.1 % (2-12); NEUTROPHILS # (AUTO) 8.1 X10'3 (1.8-7.7); NEUTROPHILS % (AUTO) 77.3 % (42-75); PLATELET COUNT 216 X10'3 (140-440); RED BLOOD COUNT 4.43 X10'6 (4.70-6.10); RED CELL DISTRIBUTION WIDTH 13.9 % (11.5-14.5); WHITE BLOOD COUNT 10.5 X10'3 (4.5-11.0)
[2021-07-13 14:29] LABS: APTT 27 SECONDS (22-32)
[2021-07-13 14:37] LABS: ALANINE AMINOTRANSFERASE 35 U/L (12-78); ALBUMIN 3.9 G/DL (3.4-5.0); ALBUMIN/GLOBULIN RATIO 1.1 (1.1-1.5); ALKALINE PHOSPHATASE 77 IU/L (46-116); ANION GAP 9 (8-16); ASPARTATE AMINO TRANSFERASE 20 U/L (10-37); BILIRUBIN,TOTAL 0.5 MG/DL (0.1-1.0); BLOOD UREA NITROGEN 13 MG/DL (7-18); BUN/CREATININE RATIO 13.7 (5.4-32.0); CALCIUM 8.8 MG/DL (8.5-10.1); CHLORIDE 104 MMOL/L (99-107); CREATININE 0.95 MG/DL (0.60-1.10); GLUCOSE 216 MG/DL (70-104); POTASSIUM 3.9 MMOL/L (3.5-5.1); SODIUM 140 MMOL/L (135-145); TOTAL PROTEIN 7.4 G/DL (6.4-8.2); eGFR 87 ML/MIN
[2021-07-13] MEDS: niCARDipine-NS 40mg/200ml IVPB 200 ML IV SCH ×2 (14:44→22:30)
[2021-07-13] MEDS ORDERED: METF-1203 PO (14:46)
[2021-07-13] MEDS ORDERED: CARV25TA2 PO (14:46)
[2021-07-13] MEDS ORDERED: FLEC50TA28 PO (14:46)
[2021-07-13] MEDS ORDERED: LISI40TA13 PO (14:46)
[2021-07-13] MEDS ORDERED: POTA-82 PO (14:46)
[2021-07-13] MEDS ORDERED: ATOR10TA70 PO (14:46)
[2021-07-13] MEDS ORDERED: FURO20TA4 PO (14:46)
[2021-07-13] MEDS ORDERED: APIX5TAB3 PO (14:53)
[2021-07-13] MEDS ORDERED: hyDRALAzine 10mg tablet PO STA (16:29)
[2021-07-13] MEDS ORDERED: HYDROcodone/acetaminophen 5mg/325mg tablet PO PRN (16:40)
[2021-07-13] MEDS ORDERED: ondansetron/PF 4mg/2ml inj IV PRN (16:40)
[2021-07-13] MEDS ORDERED: acetaminophen 325mg tablet PO PRN ×2 (16:40)
[2021-07-13] MEDS ORDERED: MESSAGE TO PHARMACY PO ONE (16:40)
[2021-07-13] MEDS ORDERED: dextrose 50%-water 50ml dispensing syringe IV PRN ×2 (16:40)
[2021-07-13] MEDS ORDERED: HYDROcodone/acetaminophen 10/325mg tab PO PRN (16:40)
[2021-07-13] MEDS ORDERED: magnesium hydroxide 30ml (MOM) UD suspension PO PRN (16:40)
[2021-07-13] MEDS ORDERED: morphine 2 MG/ML inj. syringe IV PRN ×2 (16:40)
[2021-07-13] MEDS ORDERED: mag hydrox/Alum hydrox/simeth 30ml oral suspension PO PRN (16:40)
[2021-07-13] MEDS ORDERED: glucagon, human recombinant 1mg kit SUBCUT PRN (16:40)
[2021-07-13] MEDS ORDERED: DEXTROSE 15 GM of carb/4 tabs (each vial/BOTTLE has 4 tablets) PO PRN ×2 (16:40)
[2021-07-13 17:21] LABS: CHOL/HDL RATIO 3.5 (0.00-4.99); CHOLESTEROL 140 MG/DL (0-200); HDL CHOLESTEROL 40 MG/DL (35-60); LDL CHOLESTEROL 71 MG/DL (50-100); TRIGLYCERIDES 155 MG/DL (20-135)
--- NOTE | 2021-07-13 17:44 | NUR ---
BEDSIDE ECHO BEING PERFORMED
--- NOTE | 2021-07-13 17:58 | NUR ---
NOTIFIED DR. THOMAS OF NEURO CHANGES. PT SHOWING RIGHT SIDE FACIAL DROOP.
[2021-07-13 18:04] LABS: CLARITY,URINE CLEAR (Clear); GLUCOSE, URINE 250 mg/dl (Neg); KETONES,URINE NEGATIVE (Neg); LEUKOCYTE ESTERASE ,URINE NEGATIVE (Neg); NITRITES, URINE NEGATIVE (Neg); OCCULT BLOOD,URINE NEGATIVE (Neg); PH,URINE 7.5 (4.8-8.0); PROTEIN,URINE NEGATIVE (Neg); UROBILINOGEN,URINE 0.2 E.U/dL (0.2-1.0)
[2021-07-13 18:07] LABS: UA COLLECTION TYPE VOIDED
[2021-07-13 18:17] LABS: COLOR,URINE STRAW (Yellow)
[2021-07-13 18:27] LABS: URINE AMPHETAMINE SCREEN NEGATIVE (Neg); URINE BARBITUATE SCREEN NEGATIVE (Neg); URINE BENZODIAZEPINES SCREEN NEGATIVE (Neg); URINE CANNABINOID SCREEN NEGATIVE (Neg); URINE COCAINE SCREEN NEGATIVE (Neg); URINE METHADONE SCREEN NEGATIVE (Neg); URINE OPIATE SCREEN NEGATIVE (Neg); URINE PHENCYCLIDINE SCREEN NEGATIVE (Neg)
[2021-07-13 19:11] VITALS: BP 179/99
[2021-07-13] MEDS: apixaban 5mg tablet PO SCH (19:26)
[2021-07-13] MEDS: carVEDilol 12.5mg tablet PO SCH (19:26)
[2021-07-13] MEDS: docusate sod 100mg capsule PO SCH (19:27)
[2021-07-13] MEDS: flecainide 50mg tablet PO SCH (19:27)
[2021-07-13] MEDS: insulin glargine (Lantus) pen - multi-dose SQ SCH (21:00)
[2021-07-13 22:42] VITALS: BP 213/178
[2021-07-13] MEDS: labetalol 20mg/4ml (5mg/ml) syringe IV PRN (22:42)
[2021-07-13 22:55] VITALS: BP 202/123
[2021-07-13] MEDS ORDERED: labetalol 20mg/4ml (5mg/ml) syringe IV ONE (23:05)
[2021-07-13 23:15] VITALS: BP 243/140
[2021-07-13 23:21] VITALS: BP 171/97
[2021-07-14] VITALS (12 sets, daily range): BP systolic 149–210; BP diastolic 82–120
[2021-07-14] MEDS: labetalol 20mg/4ml (5mg/ml) syringe IV PRN ×8 (05:18→17:17)
[2021-07-14 06:38] LABS: BASOPHILS # (AUTO) 0.1 X10'3 (0-0.2); BASOPHILS % (AUTO) 0.5 % (0-1); EOSINOPHILS # (AUTO) 0.1 X10'3 (0-0.9); EOSINOPHILS % (AUTO) 1.3 % (0-6); HEMATOCRIT 39.5 % (42.0-52.0); HEMOGLOBIN 13.1 g/dl (14.0-17.9); LYMPHOCYTES # (AUTO) 1.8 X10'3 (1.1-4.8); LYMPHOCYTES % (AUTO) 16.3 % (21-51); MEAN CORPUSCULAR HGB CONC 33.1 g/dL (33.0-36.5); MEAN CORPUSCULAR VOLUME 90.5 FL (78-98); MEAN PLATELET VOLUME 9.4 FL (7.4-10.4); MONOCYTES # (AUTO) 1.1 X10'3 (0-0.9); MONOCYTES % (AUTO) 9.6 % (2-12); NEUTROPHILS # (AUTO) 8.1 X10'3 (1.8-7.7); NEUTROPHILS % (AUTO) 72.3 % (42-75); PLATELET COUNT 201 X10'3 (140-440); RED BLOOD COUNT 4.37 X10'6 (4.70-6.10); RED CELL DISTRIBUTION WIDTH 14.1 % (11.5-14.5); WHITE BLOOD COUNT 11.3 X10'3 (4.5-11.0)
[2021-07-14 07:09] LABS: ALBUMIN 3.7 G/DL (3.4-5.0); ANION GAP 10 (8-16); BLOOD UREA NITROGEN 12 MG/DL (7-18); BUN/CREATININE RATIO 15.2 (5.4-32.0); CALCIUM 8.5 MG/DL (8.5-10.1); CHLORIDE 101 MMOL/L (99-107); CHOL/HDL RATIO 3.6 (0.00-4.99); CHOLESTEROL 130 MG/DL (0-200); CREATININE 0.79 MG/DL (0.60-1.10); GLUCOSE 207 MG/DL (70-104); HDL CHOLESTEROL 36 MG/DL (35-60); LDL CHOLESTEROL 63 MG/DL (50-100); POTASSIUM 3.4 MMOL/L (3.5-5.1); SODIUM 138 MMOL/L (135-145); TOTAL CARBON DIOXIDE 26.9 MMOL/L (24-32); TRIGLYCERIDES 213 MG/DL (20-135); eGFR > 90 ML/MIN
[2021-07-14] MEDS: niCARDipine-NS 40mg/200ml IVPB 200 ML IV SCH (08:04)
[2021-07-14] MEDS: atorvastatin 10mg tablet PO SCH (08:30)
[2021-07-14] MEDS: apixaban 5mg tablet PO SCH ×2 (08:30→20:09)
[2021-07-14] MEDS: aspirin 325mg tablet, delayed-release (Ecotrin) PO SCH (08:31)
[2021-07-14] MEDS: flecainide 50mg tablet PO SCH ×2 (08:31→20:09)
[2021-07-14] MEDS: aspirin 81mg, enteric-coated 1 TAB TABLET.DR PO SCH (08:31)
[2021-07-14] MEDS: furosemide 20MG tablet PO SCH (08:31)
[2021-07-14] MEDS: carVEDilol 12.5mg tablet PO SCH ×2 (08:32→20:09)
[2021-07-14] MEDS: lisinopril 20mg tablet PO SCH (08:33)
[2021-07-14] MEDS: potassium Cl 20 mEq SR tablet PO SCH (08:34)
[2021-07-14] MEDS: docusate sod 100mg capsule PO SCH ×2 (08:35→20:09)
[2021-07-14] MEDS: insulin Lispro (HumaLOG) vial - multi-dose SQ SCH ×2 (11:09→13:59)
--- NOTE | 2021-07-14 12:26 | NUR ---
Spoke to patient's mother Jessica to provide a clinical update. His mother stated she will be in today to bring him his tablet so he can communicate with her due to speech deficits s/p CVA..
--- NOTE | 2021-07-14 13:45 | NUR ---
late entry---1345transported pt from PCU to [facility] with [facility]iel and EMT, Abdi. Pt is on monitor, SR no ectopy, resp even and unlabored, skin p/w/d, pt is alert and oriented x3, speech slightly slurred, no facial droop at this time, personal banker equal and strong bilaterally, pt is able to transfer self without assist [facility] bed to [facility] 1400 BP 170/110 via truman cuff, HR 80, RR 18 98% on room air 1410 176/108 manual cuff, HR 84, RR 18, 97% on room air 1445 165/110 manual cuff, HR 87, RR 18, 98% on room air, pt resting quietly in wheelchair, MRI appt is at 1500 1510 180/110 manual cuff, HR 85, RR 18, 98% on room air, pt continues to rest quietly, now in MRI room 1530 205/110 manual cuff, HR 78, RR 18, 99% on room air, gave labetolol 10mg IV, no changes neurologically, [facility] 1600 199/115 auto cuff in ambulance, speech is starting to sound clearer, pt is GCS 15, alert, resp even and unlabored, skin p/w/d, no complaints, no neurological changes 1620 pt is back at [facility], placed pt on monitor, gave labetolol 10mg IV per order, report to Abril SWEET
--- NOTE | 2021-07-14 13:56 | NUR ---
DM consult: Pt w/ hx DM2, A1c 9 per EMR. administrative intern attempted to provide pt w/ DM education, however pt was leaving for MRI per RN. Will provide DM education at a later time. Addendum: 07/14/21 at [address] Amended: Links added. Addendum: 07/14/21 at [address] I have reviewed assessment by internetworking technician
--- NOTE | 2021-07-14 17:25 | NUR ---
THE LEFT EYELID IS DROOPY MORE THAN USUAL PER PATIENT AND SIGNIFICANT OTHER, ALSO THE NASOLABIAL FOLD ON RIGHT IS FLATTENED. Addendum: 07/14/21 at 1726 by Yaritza Ray RN Amended: Links added.
[2021-07-14] MEDS: insulin glargine (Lantus) pen - multi-dose SQ SCH (21:50)
[2021-07-15] VITALS (7 sets, daily range): BP systolic 151–196; BP diastolic 87–98
[2021-07-15] MEDS: labetalol 20mg/4ml (5mg/ml) syringe IV PRN ×5 (04:12→16:47)
[2021-07-15 06:43] LABS: BASOPHILS % (AUTO) 0.3 % (0-1); EOSINOPHILS # (AUTO) 0.1 X10'3 (0-0.9); EOSINOPHILS % (AUTO) 1.2 % (0-6); HEMATOCRIT 39.6 % (42.0-52.0); HEMOGLOBIN 13.1 g/dl (14.0-17.9); LYMPHOCYTES % (AUTO) 17.7 % (21-51); MEAN CORPUSCULAR HEMOGLOBIN 29.9 PG (27.0-31.0); MEAN CORPUSCULAR HGB CONC 33.2 g/dL (33.0-36.5); MEAN CORPUSCULAR VOLUME 90.2 FL (78-98); MEAN PLATELET VOLUME 9.4 FL (7.4-10.4); NEUTROPHILS # (AUTO) 8.1 X10'3 (1.8-7.7); NEUTROPHILS % (AUTO) 71.8 % (42-75); PLATELET COUNT 200 X10'3 (140-440); RED BLOOD COUNT 4.39 X10'6 (4.70-6.10); RED CELL DISTRIBUTION WIDTH 14.4 % (11.5-14.5); WHITE BLOOD COUNT 11.2 X10'3 (4.5-11.0)
[2021-07-15 06:45] LABS: ALBUMIN 3.6 G/DL (3.4-5.0); ANION GAP 8 (8-16); BLOOD UREA NITROGEN 15 MG/DL (7-18); BUN/CREATININE RATIO 16.1 (5.4-32.0); CALCIUM 8.7 MG/DL (8.5-10.1); CHLORIDE 104 MMOL/L (99-107); CREATININE 0.93 MG/DL (0.60-1.10); GLUCOSE 201 MG/DL (70-104); POTASSIUM 3.5 MMOL/L (3.5-5.1); SODIUM 142 MMOL/L (135-145); TOTAL CARBON DIOXIDE 30.2 MMOL/L (24-32); eGFR 90 ML/MIN
[2021-07-15] MEDS: furosemide 20MG tablet PO SCH (08:43)
[2021-07-15] MEDS: aspirin 325mg tablet, delayed-release (Ecotrin) PO SCH (08:43)
[2021-07-15] MEDS: flecainide 50mg tablet PO SCH (08:44)
[2021-07-15] MEDS: potassium Cl 20 mEq SR tablet PO SCH (08:44)
[2021-07-15] MEDS: carVEDilol 12.5mg tablet PO SCH (08:44)
[2021-07-15] MEDS: aspirin 81mg, enteric-coated 1 TAB TABLET.DR PO SCH (08:45)
[2021-07-15] MEDS: apixaban 5mg tablet PO SCH (08:45)
[2021-07-15] MEDS: atorvastatin 10mg tablet PO SCH (08:46)
[2021-07-15] MEDS: lisinopril 20mg tablet PO SCH (08:46)
[2021-07-15] MEDS: docusate sod 100mg capsule PO SCH (08:47)
[2021-07-15] MEDS ORDERED: clopidogrel 75mg tablet PO ONE (08:55)
[2021-07-15] MEDS: cloNIDine 0.1 mg tablet PO SCH ×2 (10:02→15:08)
--- NOTE | 2021-07-15 12:03 | NUR ---
DM consult: Pt w/ hx DM2, A1c 9 per EMR. food and beverage intern provided pt w/ written and verbal DM education and RD contact information at bedside. Will continue to follow. Addendum: 07/15/21 at 120[address] Amended: Links added. Addendum: 07/15/21 at [address] I have reviewed assessment by sourcing intern
[2021-07-15] MEDS: insulin Lispro (HumaLOG) vial - multi-dose SQ SCH ×2 (13:05→15:05)
[2021-07-15] MEDS ORDERED: ondansetron 4mg rapidly disintigrating tab PO PRN (13:55)
[2021-07-15] MEDS ORDERED: CLON0.1T2 PO (16:19)
[2021-07-15] MEDS ORDERED: GLIP5TAB13 PO (16:19)
[2021-07-15] MEDS ORDERED: CLOP75TA15 PO (16:19)
--- NOTE | 2021-07-15 18:46 | NUR ---
Patient discharged to home with all belongings at this time. Patient verbalized understanding of discharge instructions.
== END 2021-07-15 18:50 | disposition home or self-care (01) | DRG 65 ==
LOC: ER 13:26 → ED HOLD 16:45 → PCU 3S 19:09
PROVIDERS: ADMIT Internal Medicine; ATTEND Internal Medicine
DX: I63.9 Cerebral infarction, unspecified (principal); I16.1 Hypertensive emergency; Z68.42 Body mass index [BMI] 45.0-49.9, adult; E11.9 Type 2 diabetes mellitus without complications; I65.23 Occlusion and stenosis of bilateral carotid arteries; I11.0 Hypertensive heart disease with heart failure; E78.5 Hyperlipidemia, unspecified; R47.1 Dysarthria and anarthria; E66.01 Morbid (severe) obesity due to excess calories; I50.9 Heart failure, unspecified; I48.0 Paroxysmal atrial fibrillation; Z79.82 Long term (current) use of aspirin; Z79.899 Other long term (current) drug therapy
CPT/HCPCS: 36415; 70450; 70544; 70551; 71045; 80048; 80053; 80061; 80305; 81003; 82140; 82948; 83036; 83880; 84443; 84484; 85025; 85610; 85651; 85730; 92508; 92616; 93005; 93306; 93880; 97161; 97530; 99285; G0378; J1815; J3490